=== PATIENT | male | born 1955 | race Caucasian/White ===

== ENCOUNTER 2021-10-11 12:40 | Emergency (ER) | payer OTHER ==
[~2021-10-11] VITALS: Ht 188 cm; Wt 91.1 kg
--- OUTSIDE RECORDS SUMMARY | 2021-10-11 12:43 | XMS ---
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 E.Isaiah VISIT COUNT (12 MO.) 1 PERLA King TOTAL 1 NOTE: Visits indicate total known visits. ED/UCC VISIT TRACKING (12 MO.) 10/11/2021 12:41 PERLA Covarrubias OR TYPE: Emergency COMPLAINT: - L ANKLE/HEEL PAIN/INJURY INPATIENT VISIT TRACKING (12 MO.) No inpatient visits to display in this time frame [email or web address]
[2021-10-11] MEDS ORDERED: METFORMIN HCL500 M1 PO (16:31)
[2021-10-11] MEDS ORDERED: LISINOPRIL40 MG PO (16:31)
[2021-10-11] MEDS ORDERED: TRULICITY3 MG/0.5 M (16:32)
[2021-10-11] MEDS ORDERED: GABAPENTIN300 MG PO (16:32)
[2021-10-11] MEDS ORDERED: MELOXICAM15 MG PO (19:16)
== END 2021-10-11 19:56 | disposition home or self-care (01) ==
LOC: ED 12:40
DX: S93.402A Sprain of unspecified ligament of left ankle, initial encounter (principal); E11.9 Type 2 diabetes mellitus without complications; I10 Essential (primary) hypertension; Z79.899 Other long term (current) drug therapy; Z79.84 Long term (current) use of oral hypoglycemic drugs; X50.1XXA Overexertion from prolonged static or awkward postures, initial encounter
CPT/HCPCS: 73630; 99283-25

== ENCOUNTER 2022-01-12 05:35 | Day surgery (SDC) | payer OTHER ==
[~2022-01-12] VITALS: Ht 188 cm; Wt 87.3 kg
[~2022-01-12 05:35] MED LIST: AMOX TR-K CLV1 EAC1 PO; CIPRO500 MG PO; GABAPENTIN300 MG PO; HYDROCODON-ACE1 EA10 PO; LISINOPRIL40 MG PO; MELOXICAM15 MG PO; METFORMIN HCL500 M1 PO; PLAVIX75 MG PO; TRULICITY3 MG/0.5 M
--- NOTE | 2022-01-12 08:29 | NUR ---
01/12/22 0829 Margaret Rodrigues 0821 PT TO PACU AWAKE AND TALKING ON O2 6L VIA MASK. PT SLEEPING OFF AND ON
--- NOTE | 2022-01-15 08:09 | OR ---
[facility] [address], [place] [address] Signed DATE OF OPERATION: 01/12/2022 SURGEON: Vitaliy Arora DPM PREOPERATIVE DIAGNOSES: 1. Gangrene, left foot. 2. Cellulitis, left foot. 3. Acute osteomyelitis, left foot. POSTOPERATIVE DIAGNOSES: 1. Gangrene, left foot. 2. Cellulitis, left foot. 3. Acute osteomyelitis, left foot. LOCKSTITCH BACK MAKER: Marcello Nix DPM ANESTHESIA: IV general with local block, left foot. ACTIVITIES OFFICER: Vitaliy Benedict. SPECIMEN: Specimen sent to Pathology, soft tissue and bone from toe amputations and debridement, left foot. Also, an aerobic and anaerobic cultures, left foot. PROCEDURES: 1. Amputation 1st and 2nd digits, left foot. 2. Debridement, 1st and 2nd metatarsals, left foot. The patient was brought to the operating room and placed on the table in the supine position. Anesthesia Department administered IV sedation, after which a local block was given to the left foot using a total of 10 mL of 1:1 mixture, 2% lidocaine plain and 0.5% ropivacaine plain. The left leg and foot were then prepped and draped in the usual sterile manner and an Esmarch was used for hemostasis. Attention was initially directed to the first and second digits. The first digit was gangrenous. The second digit as well as first and second metatarsals showed bone changes on x-ray indicative of osteomyelitis, therefore the initial procedure was Electronically Signed By: VITALIY ARORA DPM 01/15/22 0809 PATIENT NAME: MIRTHA TAO OPERATIVE REPORT DATE OF : 53 REPORT #: [id number] PHYSICIAN: VITALIY ARORA DPM PCP: SINTIA MELGAR MD REPORT IS CONFIDENTIAL AND NOT TO BE RELEASED WITHOUT AUTHORIZATION [facility] [address], [place] [address] Signed amputation of the first and second digits. This was performed with an ellipse across the base of the toes extending onto the medial aspect of the first metatarsal. The toes then removed in toto and disarticulated at the MTPJ. Soft tissues then reflected dorsally and plantarly to expose the distal first metatarsal and initially the first metatarsal head was resected, then an inspection was made of the remaining bone, with infected/purulent appearing material noted within the medullary canal. Therefore, an additional section of the metatarsal removed, excising about 1 cm additional bone. The remaining bone then inspected and again noted to have remaining infection within the medullary canal, therefore an additional section of bone removed again approximately 1 cm, at which point there was noted to be normal appearing bone. This most proximal section of bone was inked on the proximal cut margin and sent as a separate specimen to Pathology. Initially upon amputation of the toes, obviously necrotic and purulent material noted and the cultures obtained at this time. Attention was then directed to the second metatarsal. Soft tissues reflected dorsally and plantarly to expose the distal second metatarsal and the second metatarsal head then resected at this time, the remaining bone inspected and appeared to be solid and healthy. At this time, the attention directed to the remaining soft tissues, significant necrosis was noted to the soft tissue surrounding the first metatarsal head plantar, more so than dorsal, soft tissues and any exposed tendon and remaining plantar plate structures excised at this time, including the sesamoids. The surgical site then irrigated with normal saline and a small amount of additional debridement then performed. The surgical site was then irrigated with Irrisept antibiotic irrigation and then the surgical site was deemed ready for closure. Closure started from the proximal and distal aspects of the incision and while the incision remained open, calcium sulfate antibiotic beads with vancomycin placed into the surgical site, then the remainder of the surgical site closed. The surgical site appeared to be entirely free of necrotic tissue and bone and given the fact that there was antibiotic beads within the surgical site, this appeared to be ready for complete closure at this time. Dressings then applied consisting of Adaptic, Betadine-soaked gauze, dry gauze, ABD pad, Kerlix roll, and Coban to maintain the dressing, but with little to no compression. ESTIMATED BLOOD LOSS: Electronically Signed By: VITALIY ARORA DPM 01/15/22 0809 PATIENT NAME: MIRTHA TAO OPERATIVE REPORT DATE OF : 53 REPORT #: [id number] PHYSICIAN: VITALIY ARORA DPM PCP: SINTIA MELGAR MD REPORT IS CONFIDENTIAL AND NOT TO BE RELEASED WITHOUT AUTHORIZATION [address] [address] Signed Less than 10 mL. INTRAOPERATIVE COMPLICATIONS: None. The patient tolerated the procedure and the anesthesia well and left the operating room with vital signs stable and vascular status intact to the remaining toes, left foot as evidenced by good color return with removal of the Esmarch. LUCIANA LorenzoB/MODL /[id number] Copies: ~ Electronically Signed By: VITALIY ARORA DPM 01/15/22 0809 PATIENT NAME: MIRTHA TAO OPERATIVE REPORT DATE OF : 53 REPORT #: [id number] PHYSICIAN: VITALIY ARORA DPM PCP: SINTIA MELGAR MD REPORT IS CONFIDENTIAL AND NOT TO BE RELEASED WITHOUT AUTHORIZATION
--- NOTE | 2022-01-16 07:18 | EKG ---
[facility] [address] [place], [place] [address] Signed Normal sinus rhythm Possible Inferior infarct , age undetermined Abnormal ECG No previous ECGs available Confirmed by JEANA CHANG MD ([id number]) on 01/16/2022 7:18:05 AM Electronically Signed By: JEANA CHANG MD 01/16/22 0718 PATIENT NAME: MIRTHA TAO Electrocardiogram DATE OF : 53 PHYSICIAN: JEANA CHANG MD REPORT #: [id number] REPORT IS CONFIDENTIAL AND NOT TO BE RELEASED WITHOUT AUTHORIZATION
== END 2022-01-12 09:00 | disposition home or self-care (01) ==
LOC: DS 05:35 → OPS 05:35 → DS 09:00
PROVIDERS: ATTEND Podiatrist Foot Surgery
PROC: 0Y6S0Z0 Detachment at Left 2nd Toe, Complete, Open Approach (ICD-10-PCS; 2022-01-12)
PROC: 0Y6Q0Z0 Detachment at Left 1st Toe, Complete, Open Approach (ICD-10-PCS; principal; 2022-01-12 07:00)
DX: E11.52 Type 2 diabetes mellitus with diabetic peripheral angiopathy with gangrene (principal); E11.69 Type 2 diabetes mellitus with other specified complication; L03.116 Cellulitis of left lower limb; M86.172 Other acute osteomyelitis, left ankle and foot; E11.42 Type 2 diabetes mellitus with diabetic polyneuropathy
CPT/HCPCS: 87205; 93005; 93010; C1713; J0295; J1100; J2250; J2405; J2704; J2795; J3010; J3370; J7121

== ENCOUNTER 2023-11-08 05:35 | Day surgery (SDC) | payer OTHER ==
[2023-11-02 10:15] VITALS: BP 118/72
[~2023-11-08] VITALS: Ht 188 cm; Wt 87.7 kg
[~2023-11-08 05:35] MED LIST changes: +ATORVASTATIN CA80 MG PO; +JARDIANCE25 MG PO; +LACTATED RINGER'S 1,000 ML IV SCH; +NORVASC10 MG PO; +OZEMPIC1 MG/0.71 SQ
[2023-11-08 06:00] VITALS: BP 113/58
[2023-11-08] MEDS ORDERED: DEXAMETHASONE SOD PHOS 4 MG/ML VIAL ONE (06:36)
[2023-11-08] MEDS ORDERED: Ropivacaine HCl 0.5% 30 ML VIAL ONE (06:37)
[2023-11-08] MEDS ORDERED: LIDOCAINE HCL 2% 20 MG/ML VIAL INJ ONE (06:37)
[2023-11-08] MEDS ORDERED: VANCOMYCIN HCL 500 MG VIAL ONE (06:37)
[2023-11-08] MEDS ORDERED: propofoL 200 MG/20 ML VIAL ONE ×2 (06:53→07:30)
[2023-11-08] MEDS ORDERED: fentaNYL citrate 100 MCG/2 ML VIAL ONE (06:53)
[2023-11-08] MEDS ORDERED: IBLOOD GLUCOSE TEST STRIP 1 EA TEST VI PRN ×2 (07:00→07:45)
[2023-11-08] MEDS ORDERED: LIDOCAINE HCL 1% 5 ML SDV INJ ONE (07:00)
[2023-11-08] MEDS ORDERED: ePHEDrine sulfate 50 MG/ML AMP ONE (07:07)
--- NOTE | 2023-11-08 07:13 | NUR ---
PT GONE FOR PROCEDURE. PROVIDED PRAYER.
[2023-11-08] MEDS ORDERED: KETAMINE in NS 50 MG/5 ML SYR ONE (07:15)
[2023-11-08] MEDS ORDERED: ondansetron HCL 4 MG/2 ML VIAL ONE (07:31)
[2023-11-08] MEDS ORDERED: fentaNYL citrate 50 MCG/ML SDV IV PRN (07:45)
[2023-11-08] MEDS ORDERED: ondansetron HCL 4 MG/2 ML VIAL IV PRN (07:45)
[2023-11-08] MEDS ORDERED: KETOROLAC TROMETHAMINE 30 MG/ML VIAL IV PRN (07:45)
[2023-11-08] MEDS ORDERED: NALOXONE HCL 0.4 MG SYR IV PRN (07:45)
[2023-11-08 08:23] VITALS: BP 119/66
--- NOTE | 2023-11-08 08:47 | NUR ---
11/08/23 0847 Crystal Ward 0800 PT ARRIVED IN PACU WIDE AWAKE WITH NO C/O'S. L FOOT ELEVATED ON PILLOWS. 0815 SIPPING ON JUICE. AT BEDSIDE. 0820 XRAY OF L FOOT DONE. 0830 DC INSTRUCTIONS GIVEN. ALL QUESTIONS ANSWERED. LEFT VIA W/C.
--- NOTE | 2023-11-08 17:21 | EKG ---
[facility] [address] [facility] [place], [place] [address] Signed Normal sinus rhythm Cannot rule out Inferior infarct (cited on or before 12-JAN-2022) Abnormal ECG When compared with ECG of 12-JAN-2022 06:07, No significant change was found Confirmed by Kaylah Mathis MD ([id number]) on 11/08/2023 5:21:39 PM Electronically Signed By: KAYLAH MATHIS DO 11/08/23 1721 PATIENT NAME: MIRTHA TAO Electrocardiogram DATE OF : 53 PHYSICIAN: KAYLAH MATHIS DO REPORT #: [id number] REPORT IS CONFIDENTIAL AND NOT TO BE RELEASED WITHOUT AUTHORIZATION
--- NOTE | 2023-11-09 17:55 | OR ---
[facility] [address] [facility] [place], [place] [address] Signed DATE OF OPERATION: 11/08/2023 SURGEON: Vitaliy Arora DPM PREOPERATIVE DIAGNOSES: 1. Diabetes with peripheral neuropathy. 2. Diabetic ulcer left foot. 3. Osteomyelitis, left foot. POSTOPERATIVE DIAGNOSES: 1. Diabetes with peripheral neuropathy. 2. Diabetic ulcer left foot. 3. Osteomyelitis, left foot. PUBLIC WORKS MANAGER SURGEON: Marcello Nix DPM ANESTHESIA: IV general with local block, left foot. LIVING SKILLS ADVISOR: Eduardo White. SPECIMEN TO PATHOLOGY: Bone of left 3rd metatarsal. PROCEDURE: Debridement of osteomyelitis, left 3rd metatarsal. PROCEDURE IN DETAIL: The patient was brought to the operating room and placed on the table in the supine position. Anesthesia Department administered IV sedation after which a local block was given to the left foot using a total of 8 mL 1:1 mixture, 2% lidocaine plain and 0.5% ropivacaine plain. The left leg and foot was then prepped and draped in the usual sterile manner and an Esmarch was used for hemostasis. Attention was initially directed to the dorsal left 3rd metatarsal head area. The patient has had previous amputation of toes 1-3 and partial amputation of the 1st and 2nd metatarsals. Therefore, the dorsal and distal aspect of the 3rd metatarsal was easily accessible. A pinpoint size ulcer was present to the plantar 3rd metatarsal Electronically Signed By: VITALIY ARORA DPM 11/09/23 1755 PATIENT NAME: MIRTHA TAO OPERATIVE REPORT DATE OF : 53 REPORT #: [id number] PHYSICIAN: VITALIY ARORA DPM PCP: SINTIA MELGAR MD REPORT IS CONFIDENTIAL AND NOT TO BE RELEASED WITHOUT AUTHORIZATION [facility] [address] [place], [place] [address] Signed head. A longitudinal incision was made dorsally over the left 3rd metatarsal head, a total of 4-5 cm in length reflecting soft tissues medial and lateral to expose the metatarsal and power instrumentation then used to create an osteotomy and the 3rd metatarsal head was then removed in toto. Bone to the metatarsal head was soft, but surrounding soft tissue showed no gross purulence or necrosis. With the metatarsal head removed and inspection was made of the surrounding soft tissues and wound cultures obtained at this time. The remaining bone of the 3rd metatarsal appears to be solid and positively bleeding. A small wafer of bone then resected and the proximal margin inked and sent separately for pathology. The surgical site then irrigated with copious amounts of normal saline. Antibiotic beads were placed into the wound site, the calcium sulfate beads contain vancomycin. The surgical site then closed using 3-0 nylon monofilament suture. Dressings were then applied consisting of Adaptic, Betadine-soaked gauze, dry gauze, ABD pad, Kerlix roll, and Coban with only slight compression primarily to maintain the dressing. INTRAOPERATIVE COMPLICATIONS: None. ESTIMATED BLOOD LOSS: Less than 5 mL. The patient tolerated the procedure and the anesthesia well and left the operating room with vital signs stable. The remaining toes 4th and 5th digits were initially pale in appearance with removal of the Esmarch. Color was slow to return to the toes, but when evaluated in the PACU, there was rapid capillary refill time to the remaining toes. Vitaliy Arora DPM DFB/MODL /[id number] Electronically Signed By: VITALIY ARORA DPM 11/09/23 1755 PATIENT NAME: MIRTHA TAO OPERATIVE REPORT DATE OF : 53 REPORT #: [id number] PHYSICIAN: VITALIY ARORA DPM PCP: SINTIA EMLGAR MD REPORT IS CONFIDENTIAL AND NOT TO BE RELEASED WITHOUT AUTHORIZATION [facility] [address] [place] [address] [place] [address] Signed Copies: ~ Electronically Signed By: VITALIY ARORA DPM 11/09/23 1755 PATIENT NAME: MIRTHA TAO OPERATIVE REPORT DATE OF : 53 REPORT #: [id number] PHYSICIAN: VITALIY ARORA DPM PCP: SINTIA MELGAR MD REPORT IS CONFIDENTIAL AND NOT TO BE RELEASED WITHOUT AUTHORIZATION
--- NOTE | 2023-11-20 15:58 | PATH ---
[facility] [address] [place], [place] [address] Signed SPECIMEN(S): A LEFT 3RD METATARSAL SPECIMEN(S): B LEFT 3RD METATARSAL PROXIMAL MARGIN SPECIMEN SOURCE: A. LEFT 3RD METATARSAL B. LEFT 3RD METATARSAL PROXIMAL MARGIN CLINICAL HISTORY: Left third metatarsal head. (Proximal and marked with ink). FINAL PATHOLOGIC DIAGNOSIS: A. Metatarsal head, left third: - Cartilage and bone demonstrating granulation tissue formation and features of acute and chronic osteomyelitis. B. Proximal margin, third metatarsal: - Bone and surrounding fibroconnective and adipose tissue, negative for inflammation. K MICROSCOPIC EXAMINATION: Histologic sections of all submitted blocks are examined by light microscopy. These findings, together with the gross examination, support the pathologic diagnosis. GROSS DESCRIPTION: A. The specimen, labeled and designated "Corie Tao, " and designated on the requisition "left third metatarsal head," is received in formalin and consists of 2.4 x 1.7 x 0.9 cm distal portion of metatarsal. The articulating surface is garcia and smooth. The proximal specimen edge is inked blue and shaved. Sectioning reveals a yellow-garcia firm bone. Tree Inspector sections are submitted in cassette A1 and placed into Decal Stat prior to processing. B. The specimen, labeled and designated "Corie Tao, " and designated on the requisition "third metatarsal proximal margin," is received in formalin and consists of 1.0 x 0.9 x 0.3 cm cross-section of long bone with black dye on one surface. This surface is reinked blue. The specimen is entirely submitted in cassette B1 and placed into Decal Stat prior to processing. FB (under the direct supervision of a pathologist) The Gross Description was prepared using a voice recognition system. The report PATIENT NAME: MIRTHA TAO PATHOLOGY DATE OF : 53 REPORT #: [id number] PHYSICIAN: GILBERT HATCH PCP: SINTIA MELGAR MD REPORT IS CONFIDENTIAL AND NOT TO BE RELEASED WITHOUT AUTHORIZATION [facility] [address] [place], [place] [address] Signed was reviewed for accuracy; however, sound-alike word errors, addition and/or deletions may occur. If there is any question about this report, please contact Client Services. ADDITIONAL NOTES: Immunohistochemical and/or in situ hybridization studies if performed in this case included appropriate positive controls that reacted as expected. This test was developed and its performance characteristics determined by [facility]. It has not been cleared or approved by the U.S. Food and Drug Administration. The FDA has determined that such clearance or approval is not necessary. This test is used for clinical purposes. It should not be regarded as investigational or for research. [facility] is certified under the Clinical Laboratory Improvement Amendments of 1988 (CLIA) as qualified to perform high complexity clinical laboratory testing. PERFORMING LABORATORY: Technical component was performed by [facility], [address] [place] [address] (CLIA# [id number]). Professional interpretation was performed by [facility], [address] [place] [place] [place] [address] (CLIA#:[id number]). Diagnostician: Carlin Borrero MD Pathologist Electronically Signed 11/20/2023 Copies: ~ PATIENT NAME: MIRTHA TAO PATHOLOGY DATE OF : 53 REPORT #: [id number] PHYSICIAN: GILBERT PATHOLOGY PCP: SINTIA MELGAR MD REPORT IS CONFIDENTIAL AND NOT TO BE RELEASED WITHOUT AUTHORIZATION
== END 2023-11-08 08:30 | disposition home or self-care (01) ==
LOC: DS 05:35
PROVIDERS: ATTEND Podiatrist Foot Surgery
PROC: 0Q9P0ZZ Drainage of Left Metatarsal, Open Approach (ICD-10-PCS; principal; 2023-11-08 07:00)
DX: E11.69 Type 2 diabetes mellitus with other specified complication (principal); M86.172 Other acute osteomyelitis, left ankle and foot; M86.672 Other chronic osteomyelitis, left ankle and foot; E11.621 Type 2 diabetes mellitus with foot ulcer; L97.524 Non-pressure chronic ulcer of other part of left foot with necrosis of bone; E11.42 Type 2 diabetes mellitus with diabetic polyneuropathy; F17.210 Nicotine dependence, cigarettes, uncomplicated; Z79.02 Long term (current) use of antithrombotics/antiplatelets; Z79.1 Long term (current) use of non-steroidal anti-inflammatories (NSAID); Z79.899 Other long term (current) drug therapy; Z89.412 Acquired absence of left great toe; Z89.422 Acquired absence of other left toe(s)
CPT/HCPCS: 01480; 73630; 87070; 87075; 87205; 93005; 93010; C1713; J1100; J2405; J2704; J2795; J3010; J3370; J3490; J7121

== ENCOUNTER 2023-12-27 06:52 | Day surgery (SDC) | payer OTHER ==
[2023-12-21 09:18] VITALS: BP 109/73
[~2023-12-27] VITALS: Ht 188 cm; Wt 87.7 kg
[~2023-12-27 06:52] MED LIST changes: +BUPIVACAINE 0.75% IN DEXTROSE 2 ML AMP ONE; +DEXAMETHASONE SOD PHOS 4 MG/ML VIAL ONE; +FAMOTIDINE 20 MG/ 2 ML VIAL ONE; +KETAMINE in NS 50 MG/5 ML SYR ONE; +KETOROLAC TROMETHAMINE 30 MG/ML VIAL ONE; +LACTATED RINGER'S 1,000 ML IV ONE; +LIDOCAINE HCL 2% 5 ML SDV ONE; +METOCLOPRAMIDE HCL 10 MG/2 ML SDV ONE; +MIDAZOLAM HCL 2 MG/2 ML VIAL ONE; +Ropivacaine HCl 0.5% 30 ML VIAL ONE; +fentaNYL citrate 100 MCG/2 ML VIAL ONE; +ondansetron HCL 4 MG/2 ML VIAL ONE; +propofoL 200 MG/20 ML VIAL ONE
[2023-12-27] MEDS ORDERED: IBLOOD GLUCOSE TEST STRIP 1 EA TEST VI PRN ×2 (07:00→08:00)
[2023-12-27] MEDS ORDERED: LIDOCAINE HCL 1% 5 ML SDV INJ ONE (07:00)
[2023-12-27 07:03] VITALS: BP 111/57
--- NOTE | 2023-12-27 07:29 | NUR ---
MOISÉS TO BE CALLED FOR RIDE HOME.
[2023-12-27] MEDS ORDERED: PROCHLORPERAZINE EDISYLATE 10 MG/2 ML VIAL IV PRN (08:00)
[2023-12-27] MEDS ORDERED: fentaNYL citrate 50 MCG/ML SDV IV PRN (08:00)
[2023-12-27] MEDS ORDERED: droPERidol 5 MG/2 ML VIAL IV PRN (08:00)
[2023-12-27] MEDS ORDERED: METOCLOPRAMIDE HCL 10 MG/2 ML SDV IV PRN (08:00)
[2023-12-27] MEDS ORDERED: ondansetron HCL 4 MG/2 ML VIAL IV PRN (08:00)
[2023-12-27] MEDS ORDERED: NALOXONE HCL 0.4 MG SYR IV PRN (08:00)
[2023-12-27] MEDS ORDERED: MORPHINE SULFATE 10 MG/ML VIAL IV PRN (08:00)
[2023-12-27] MEDS ORDERED: CEFAZOLIN SODIUM 2 GM/20 ML SYR IV ONE (08:45)
--- NOTE | 2023-12-27 08:47 | NUR ---
ADMINISTRATIVE SUPERVISOR IN TO TALK WITH PT.
[2023-12-27 10:37] VITALS: BP 118/64
--- NOTE | 2023-12-27 11:04 | NUR ---
12[facility]27/23 [facility]IVED IN PACU NON RESPONSIVE TO NOXIOUS STIMULI WITH OPA IN PLACE. 1010 NO CHANGE IN PT STATUS. L FOOT ELEVATED. 1029 PT REACTIVE. OPA REMOVED. 1030 OXYGEN REMOVED AND TALKING TO STAFF. NO C/O'S. BLOOD SUGAR 102. 1045 SITTING AT BEDSIDE GETTING DRESSED. 1050 DC INSTRUCTIONS GIVEN. ALL QUESTIONS ANSWERED. LEFT VIA W/C TO ROOM 13 TO WAIT FOR RIDE.
--- NOTE | 2023-12-28 06:53 | OR ---
[facility] [address] [facility] [place], [place] [address] Signed DATE OF OPERATION: 12/27/2023 SURGEON: Vitaliy Arias DPM PREOPERATIVE DIAGNOSES: 1. Diabetes with peripheral neuropathy. 2. Other acquired deformity of left foot, relatively long metatarsals, left fourth and fifth metatarsals. POSTOPERATIVE DIAGNOSES: 1. Diabetes with peripheral neuropathy. 2. Other acquired deformity of left foot, relatively long metatarsals, left fourth and fifth metatarsals. FOOD INSPECTOR: Marcello Nix DPM. ANESTHESIA: IV general with local block, left foot. ROOM SERVICE WAITER: Andre Muro. SPECIMEN TO PATHOLOGY: None. PROCEDURE: Metatarsal osteotomy, left fourth and fifth metatarsals. PROCEDURE IN DETAIL: The patient was brought to the operating room and placed on the table in the supine position. Anesthesia Department administered IV sedation after which a local block was given to the left foot using a total of 8 mL 1:1 mixture, 2% lidocaine plain and 0.5% ropivacaine plain. The left leg and foot was then draped and prepped in the usual sterile manner and an Esmarch was used for hemostasis. Attention was initially directed to the dorsal left forefoot. A linear longitudinal incision was made between the distal fourth and fifth metatarsals. The incision was deepened via sharp and blunt dissection and with use of cautery as necessary for hemostasis. Once dissection was through the level of the fascia. This was deepened Electronically Signed By: VITALIY ARIAS DPM 12/28/23 0653 PATIENT NAME: MIRTHA TAO OPERATIVE REPORT DATE OF : 53 REPORT #: [id number] PHYSICIAN: VITALIY ARIAS DPM PCP: SINTIA MELGAR MD REPORT IS CONFIDENTIAL AND NOT TO BE RELEASED WITHOUT AUTHORIZATION [facility] [address] [place] [address] Signed through the intermetatarsal space and the side of the each adjacent metatarsal exposed the intraoperative fluoroscopy was used to identify the specific level of the osteotomy, then the osteotomy made in the fourth metatarsal, and then in the fifth metatarsal as well. The level of the metatarsal osteotomies was determined by the length of the remaining second and third metatarsals which have had previous metatarsal head resections, attempting to create a more normal parabola at that length by allowing the fourth and fifth metatarsal heads to float following the osteotomies. This will create a new metatarsal parabola at the osteotomy site. The surgical site then irrigated with normal saline, then closed using 4-0 nylon monofilament suture. Dressings applied using Adaptic, Betadine-soaked gauze, dry gauze, Flexicon, and Coban with minimal compression, primarily to maintain the dressing. INTRAOPERATIVE COMPLICATIONS: None. ESTIMATED BLOOD LOSS: Less than 5 mL. The patient tolerated the procedure and the anesthesia well and left the operating room with vital signs stable and vascular status intact to the left foot as evidenced by hyperemia with removal of the Esmarch. Vitaliy Arias DPM DFB/MODL /[id number] Copies: ~ Electronically Signed By: VITALIY ARIAS DPM 12/28/23 0653 PATIENT NAME: MIRTHA TAO OPERATIVE REPORT DATE OF : 53 REPORT #: [id number] PHYSICIAN: VITALIY ARIAS DPM PCP: SINTIA MELGAR MD REPORT IS CONFIDENTIAL AND NOT TO BE RELEASED WITHOUT AUTHORIZATION
== END 2023-12-27 10:50 | disposition home or self-care (01) ==
LOC: DS 06:52
PROVIDERS: ATTEND Podiatrist Foot Surgery
PROC: 0QBP0ZZ Excision of Left Metatarsal, Open Approach (ICD-10-PCS; principal; 2023-12-27 08:30)
DX: M21.6X2 Other acquired deformities of left foot (principal); E11.42 Type 2 diabetes mellitus with diabetic polyneuropathy; I10 Essential (primary) hypertension; E11.621 Type 2 diabetes mellitus with foot ulcer; L97.522 Non-pressure chronic ulcer of other part of left foot with fat layer exposed
CPT/HCPCS: 01480; 73620; 73630; J0690; J1100; J1885; J2003; J2250; J2405; J2704; J2765; J2795; J3010; J3490; J7121